=== PATIENT | female | born 1955 | race Caucasian/White ===

== ENCOUNTER 2018-02-24 06:59 | Inpatient (IN) | payer OTHER ==
[~2018-02-24] VITALS: Ht 170.2 cm; Wt 93.9 kg
[~2018-02-24 06:59] MED LIST: AZITHROMYCIN 2250 MG PO; CEFDINIR300 MG PO; HYDROCODONE-AP1 EAC6 PO; LEXAPRO 10 MG T10 M2 PO; NAUSEA MED; VOLTAREN GEL 1100 G2 TOP; XARELTO 20 MG PO; XARELTO15 MG PO; XARELTO20 MG PO
[2018-02-27 12:53] VITALS: BP 148/82
[2018-02-27 12:54] LABS: HEMATOCRIT 46.3 % (37.0-47.0); HEMOGLOBIN 15.6 gm/dL (12.0-15.0); MCH 30.4 pg (26.0-34.0); MCHC 33.6 g/dL (28.0-37.0); MCV 90.3 fL (80.0-100.0); MPV 8.1 fl. (7.2-11.1); RBC 5.13 mil/uL (4.20-5.00); WBC 12.5 thou/uL (4.0-11.0)
[2018-02-27 13:01] LABS: CALCIUM 9.6 mg/dL (8.5-10.1); CREATININE 1.4 mg/dL (0.6-1.3)
--- NOTE | 2018-02-27 16:22 | EKG ---
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
[2018-02-27 21:20] VITALS: BP 144/62
[2018-02-28 04:00] VITALS: BP 146/62
[2018-02-28 07:20] VITALS: BP 135/62
[2018-02-28 08:11] VITALS: BP 135/57
[2018-02-28 08:27] LABS: HEMATOCRIT 39.2 % (37.0-47.0); MCH 29.8 pg (26.0-34.0); MCHC 33.1 g/dL (28.0-37.0); MCV 90.1 fL (80.0-100.0); MPV 7.9 fl. (7.2-11.1); NUCLEATED RBCS 0 /100WBC; PLATELET COUNT* 266 thou/uL (150-400); RBC 4.35 mil/uL (4.20-5.00); WBC 12.9 thou/uL (4.0-11.0)
[2018-02-28 08:40] LABS: ALBUMIN 2.6 g/dL (3.4-5.0); CALCIUM 7.7 mg/dL (8.5-10.1); CREATININE 1.4 mg/dL (0.6-1.3); POTASSIUM 4.9 mmol/L (3.5-5.1); TOTAL BILIRUBIN 0.6 mg/dL (<0.1-1.0); TOTAL PROTEIN 5.6 g/dL (6.4-8.2)
[2018-02-28 08:56] LABS: ABSOLUTE MONOCYTES 1.2 thou/uL (0.0-1.2); ABSOLUTE NEUTROPHILS 10.7 thou/uL (1.6-8.1); ANISOCYTOSIS 1+; PLATELET ESTIMATE ADEQUATE; POIKILOCYTOSIS 1+
[2018-02-28 16:00] VITALS: BP 117/42
[2018-02-28 20:20] VITALS: BP 146/55
[2018-02-28 23:22] VITALS: BP 127/41
[2018-03-01 03:53] VITALS: BP 127/47
[2018-03-01 04:17] LABS: ABSOLUTE BASOPHILS 0.1 thou/uL (0.0-0.2); ABSOLUTE MONOCYTES 0.9 thou/uL (0.0-1.2); ABSOLUTE NEUTROPHILS 8.8 thou/uL (1.6-8.1); BASOPHILS 0.7 %; EOSINOPHILS 0.2 %; LYMPHOCYTES 9.7 %; MCH 30.2 pg (26.0-34.0); MCHC 32.9 g/dL (28.0-37.0); MCV 91.6 fL (80.0-100.0); MONOCYTES 8.1 %; MPV 8.5 fl. (7.2-11.1); NUCLEATED RBCS 0 /100WBC; PLATELET COUNT* 205 thou/uL (150-400); POLYS 81.3 %; RDW-CV 14.8 % (10.5-14.5); WBC 10.8 thou/uL (4.0-11.0)
[2018-03-01 04:21] LABS: HEMOGLOBIN 10.9 gm/dL (12.0-15.0)
[2018-03-01 04:22] LABS: CALCIUM 7.6 mg/dL (8.5-10.1); CREATININE 0.9 mg/dL (0.6-1.3); POTASSIUM 4.4 mmol/L (3.5-5.1)
[2018-03-01 08:00] VITALS: BP 121/50
[2018-03-01 15:52] VITALS: BP 134/53
--- NOTE | 2018-03-01 18:15 | EKG ---
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 : 1955 Requested By: Aram Green Order Number: [id number] Misti MD: Sarath Rehman Measurements Intervals [place] Rate: 104 P: 41 [place]: 121 QRS: -8 QRSD: 88 T: 75 QT: 332 QTc: 437 Interpretive Statements Sinus tachycardia atrial and ventricular premature complexes Borderline T wave abnormalities Compared to ECG 02/27/2018 12:24:16 Ventricular premature complex(es) now present Sinus rhythm no longer present Electronically Signed On 03-01-2018 18:15:24 CDT by Sarath Rehman [email or web address] <ELECTRONICALLY SIGNED> By: Sarath Rehman MD, [facility] 03/01/18 1815 0840 0840 Sarath Rehman MD, [facility] /EPI
[2018-03-01 20:00] VITALS: BP 143/63
[2018-03-02] VITALS: BP 124/59
[2018-03-02 04:00] VITALS: BP 128/60
[2018-03-02 04:31] LABS: ABSOLUTE EOSINOPHILS 0.1 thou/uL (0.0-0.7); ABSOLUTE LYMPHOCYTES 0.9 thou/uL (0.8-5.3); ABSOLUTE MONOCYTES 0.8 thou/uL (0.0-1.2); ABSOLUTE NEUTROPHILS 9.2 thou/uL (1.6-8.1); BASOPHILS 0.4 %; EOSINOPHILS 1.3 %; HEMATOCRIT 30.2 % (37.0-47.0); HEMOGLOBIN 10.1 gm/dL (12.0-15.0); LYMPHOCYTES 8.2 %; MCH 30.5 pg (26.0-34.0); MCHC 33.4 g/dL (28.0-37.0); MCV 91.5 fL (80.0-100.0); MONOCYTES 7.2 %; MPV 8.5 fl. (7.2-11.1); NUCLEATED RBCS 0 /100WBC; PLATELET COUNT* 213 thou/uL (150-400); POLYS 82.9 %; RDW-CV 14.5 % (10.5-14.5); WBC 11.1 thou/uL (4.0-11.0)
[2018-03-02 04:42] LABS: CALCIUM 7.9 mg/dL (8.5-10.1); CREATININE 0.9 mg/dL (0.6-1.3); MAGNESIUM 1.8 mg/dL (1.8-2.4); PHOSPHORUS* 2.4 mg/dL (2.5-4.9); POTASSIUM 4.5 mmol/L (3.5-5.1)
[2018-03-02 07:45] VITALS: BP 112/54
[2018-03-02 12:17] VITALS: BP 126/61
[2018-03-02 16:23] VITALS: BP 113/53
[2018-03-02 20:00] VITALS: BP 136/50
[2018-03-03] VITALS: BP 147/46
[2018-03-03 04:00] VITALS: BP 133/61
[2018-03-03 04:50] LABS: HEMATOCRIT 32.2 % (37.0-47.0); HEMOGLOBIN 10.5 gm/dL (12.0-15.0); MCHC 32.5 g/dL (28.0-37.0); MCV 92.2 fL (80.0-100.0); MPV 8.6 fl. (7.2-11.1); NUCLEATED RBCS 0 /100WBC; RBC 3.49 mil/uL (4.20-5.00); RDW-CV 15.1 % (10.5-14.5); WBC 10.6 thou/uL (4.0-11.0)
[2018-03-03 05:13] LABS: CALCIUM 8.6 mg/dL (8.5-10.1); MAGNESIUM 1.8 mg/dL (1.8-2.4); PHOSPHORUS* 3.2 mg/dL (2.5-4.9); POTASSIUM 4.5 mmol/L (3.5-5.1)
[2018-03-03 05:16] LABS: PLATELET COUNT* 305 thou/uL (150-400)
[2018-03-03 06:32] LABS: ABSOLUTE BASOPHILS 0.1 thou/uL (0.0-0.2); ABSOLUTE EOSINOPHILS 0.4 thou/uL (0.0-0.7); ABSOLUTE LYMPHOCYTES 0.6 thou/uL (0.8-5.3); ABSOLUTE MONOCYTES 0.3 thou/uL (0.0-1.2); ABSOLUTE NEUTROPHILS 9.1 thou/uL (1.6-8.1); METAMYELOCYTES 1 %; PLATELET ESTIMATE ADEQUATE
[2018-03-03 08:00] VITALS: BP 144/38
[2018-03-03 16:12] VITALS: BP 125/62
[2018-03-03 20:00] VITALS: BP 125/54
[2018-03-03 23:43] VITALS: BP 146/52
[2018-03-04 03:47] VITALS: BP 153/62
[2018-03-04 04:23] LABS: HEMATOCRIT 31.2 % (37.0-47.0); HEMOGLOBIN 10.2 gm/dL (12.0-15.0); MCHC 32.6 g/dL (28.0-37.0); MCV 92.2 fL (80.0-100.0); MPV 8.3 fl. (7.2-11.1); RBC 3.38 mil/uL (4.20-5.00)
[2018-03-04 04:30] LABS: CALCIUM 8.7 mg/dL (8.5-10.1); CREATININE 0.9 mg/dL (0.6-1.3); MAGNESIUM 1.8 mg/dL (1.8-2.4); PHOSPHORUS* 4.2 mg/dL (2.5-4.9); POTASSIUM 4.9 mmol/L (3.5-5.1)
[2018-03-04 08:00] VITALS: BP 140/62
[2018-03-04 16:03] VITALS: BP 120/62
[2018-03-04 20:00] VITALS: BP 125/54
[2018-03-04 23:29] VITALS: BP 125/55
[2018-03-05 04:09] VITALS: BP 135/56
[2018-03-05 07:50] VITALS: BP 150/69
[2018-03-05 15:23] VITALS: BP 106/58
[2018-03-05 20:00] VITALS: BP 124/59
[2018-03-06 08:00] VITALS: BP 127/55
[2018-03-06] MEDS ORDERED: PHENERGAN 25 MG25 M1 PO (10:43)
[2018-03-06] MEDS ORDERED: LOPERAMIDE 2 MG2 M1 PO (10:43)
[2018-03-06] MEDS ORDERED: HYDROCODONE-AP1 EAC6 PO (14:28)
[2018-03-06 14:41] VITALS: BP 127/55
[2018-03-06 16:00] VITALS: BP 134/61
[2018-03-07 03:45] VITALS: BP 115/56
[2018-03-07 08:00] VITALS: BP 121/53
[2018-03-07 08:17] LABS: URINE BILIRUBIN NEGATIVE (Negative); URINE BLOOD NEGATIVE (Negative); URINE CLARITY CLEAR; URINE COLOR YELLOW; URINE GLUCOSE-RANDOM NEGATIVE (Negative); URINE KETONES NEGATIVE (Negative); URINE LEUKOCYTES-REFLEX NEGATIVE (Negative); URINE NITRITE-REFLEX NEGATIVE (Negative); URINE PROTEIN NEGATIVE (Negative); URINE SPECIFIC GRAVITY >= 1.030 (1.005-1.030); URINE UROBILINOGEN 0.2 E.U./dl (0.2-1.0)
[2018-03-07 11:35] VITALS: BP 121/53
--- NOTE | 2018-03-10 22:20 | OP ---
[facility] [place] [address] [place] [address] OPERATIVE REPORT Name: VINEET PFEIFFER Room: [address] IN M.R.#: [id number] Admission: 02/27/18 Attend Phys: Juancarlos Robin Discharge: 03/07/18 Date of : 57 Report #: [id number] THIS REPORT FOR: //name// CC: Bisi Green DATE OF SERVICE: 02/27/2018 PREOPERATIVE DIAGNOSES: 1. History of obstructing colorectal cancer. 2. Metastatic colorectal cancer. POSTOPERATIVE DIAGNOSES: 1. History of obstructing colorectal cancer. 2. Metastatic colorectal cancer. PROCEDURE: 1. Laparoscopic colostomy takedown. 2. Conversion to laparotomy. 3. Subtotal colectomy. 4. Ileorectal anastomosis. 5. Rigid proctosigmoidoscopy. 6. Angiographic evaluation of colonic flap. 7. Extensive lysis of adhesions for 2 hours. 8. Loop ileostomy. 9. Small bowel resection with anastomosis. SURGEON: Bisi Ivy M.D. CULINARY MANAGER: Ileana Cerrato DO. ESTIMATED BLOOD LOSS: 100 mL. FINDINGS: Poor perfusion of left colon immediately prior to anastomosis requiring extension to a subtotal colectomy to achieve adequate reach given her large body habitus and constricted mesentery. ANESTHESIA: GET. SPECIMENS: 1. Peritoneal nodule. 2. Colon. 3. Colostomy specimen. [address] [address] OPERATIVE REPORT Name: VINEET PFEIFFER Room: [address] IN M.R.#: [id number] Admission: 02/27/18 Attend Phys: Juancarlos Robin Discharge: 03/07/18 Date of : 57 Report #: [id number] DESCRIPTION OF PROCEDURE: Full informed consent obtained preoperatively, full discussion of risks, benefits, and alternatives, questions answered. The patient understood risks of bleeding, infection, reoperation, injury to surrounding structures, missed injury, possibility that she would not be able to be reversed, ongoing cancer, delay in chemotherapy, anastomotic leak, temporary or permanent stoma, catastrophic complications up to and including cardiopulmonary failure and . She understood and wished to proceed. She was taken to the operating room, prepped and draped in standard sterile fashion. We began with a timeout with all in agreement. The patient prepped and draped in the lithotomy fashion, began with a 7 cm incision around the umbilicus for hand port. There was entry into the bowel, which was extensively. Upon initial entry in the abdomen, there was a small bowel without any dissection plane adhering to midline incision. There was entry into small bowel, which was inherent to the procedure given the severe intraabdominal adhesive process. At this point, I began extensive lysis of adhesions, taking down numerous interloop adhesions as well as loops of small bowel to the anterior abdominal wall. I then was able to make a window, where I began working on taking down the colostomy. Colostomy was circumferentially dissected with cautery and from subcutaneous tissue and fascia. At this point, an Alejo wound protector was placed. It had already been stitched to prevent leakage. I worked for some time mobilizing the left colon away from the small bowel, retroperitoneum and left colon as well as working on the splenic flexure. I got to a point where reach was adequate for an anastomosis. At this point, I turned my attention to the rectum. Significant small bowel loops of adhesive disease were dissected out of the pelvis. I the rectum from the pelvic sidewall and the anterior abdominal wall. I had a healthy appearing rectal stump at this time. I brought my left colon down to the rectum. I was able to get to this point at the end of its reach with minimal tension. Prior to making my anastomosis I gave 3 mL of ICG green. I checked the left colon from the splenic flexure down to the left colon itself. Given the patient's very large body habitus and somewhat constricted mesentery, I did not feel it would be possible to drop hepatic flexure down to reach the rectum in a tension-free manner. Therefore, I converted to laparotomy and proceeded with subtotal colectomy. This part itself also was very challenging. At this point, I was able to inspect the abdomen further. Peritoneal nodules were noted, one was sent for biopsy. Also, pictures taken of nodule still present in liver. Overall, cancer had appeared to have receded since prior exploration; however, I suspect there may still be some present. I talked with the patient preoperatively extensively about this scenario and she did wish strongly to proceed with attempt at reversal. I continued with my subtotal colectomy, omentum from the transverse colon, entering the lesser sac, hepatocolic ligaments were taken down, took down the white line of Toldt on the opposite side and the cecum from the retroperitoneum. The vessel sealer was used to take down the mesentery. Finally, I came to a site of the small bowel where it would easily drop down to the rectum in a tension-free manner. At this point, I made an enterotomy in the [address] [address] OPERATIVE REPORT Name: VINEET PFEIFFER Room: [address] IN [facility]#: [id number] Admission: 02/27/18 Attend Phys: Juancarlos Robin Discharge: 03/07/18 Date of : 57 Report #: [id number] distal terminal ileum, advanced the 29 EEA stapler with a spike attached to the anvil and advanced it out through the end of mesenteric window of the small bowel. I removed the spike. Next, I ran the small bowel in its entirety and took down additional loop adhesions. I came to a portion where there was an injury to the small bowel. After continuing on the small bowel, I did find the site of the enterotomy encountered at the beginning of procedure. It was a large circumference; therefore, I chose to proceed with small bowel resection. I mobilized the proximal and distal healthy margins. Mesentery was taken on the distal injured margin. It was brought together in ouai-hm-qyth anti-peristaltic fashion. Common channel was made and then 65 KELLI fired between it. Next, Allises were used to grasp this 90 TA stapler fired across this to close the common channel. A 3-0 silks were used to imbricate. The anastomosis was patent and milking contents past it. There was no evidence of any leak. An additional serosal tear was oversewed with 3-0 silk. I inspected the small-bowel again in its entirety. I found no evidence of any injury throughout its extent with multiple checks. I brought my small-bowel connection down to the pelvis and easily reached the rectum tension free. I inspected where my small-bowel ileostomy would come up and this still did not place any undue tension on the lower anastomosis. I brought the EEA stapler after first dilating up to end of the rectum. Kamlesh advanced easily. It synchronized with the anvil, I brought them together within the safety zone, waited one full minute and then fired and then removed the stapler. Staple line appeared to be complete. The blood supply appeared intact. I irrigated and performed rigid proctosigmoidoscopy up towards the anastomosis. Internally, it appeared to be complete. There was a small air leak noted at the patient's left lateral location. This visually did not have a defect, but air leak was noted. I oversewed it until the air leak was stopped. We confirmed then that there was no leak. I placed a 19 round DARLEEN in the pelvis, anchored in with 2-0 nylon. I selected my loop ileostomy. It was brought up to the previous colostomy site. The skin was approximated with 3-0 PDS as the fascia was closed with 3-0 PDS at the stoma site to make it more appropriate for an ileostomy. A stoma bar would be placed beneath it and would later be matured in Renetta manner. I irrigated it copiously and made sure it was hemostatic. I performed methodical wound exploration to make sure there were no laps and her count was correct. I closed the fascia from craniocaudal portions of the incision with 0 PDS. I irrigated the wound. I approximated with 3-0 Vicryl and closed with vu. It was protected. Next I matured the loop ileostomy with 3-0 Vicryl in multiple occasions. I had taken full-thickness bites, some deep serosal bites and dermal bites and then matured the mucocutaneous junction. It was palpably patent and the proximal edge was off the skin several centimeters. Stoma appliance was placed. Stoma bar was under the ileostomy. Sponge, needle and instrument counts were correct at the end of the case. The patient tolerated it well. <ELECTRONICALLY SIGNED> By: Bisi Ivy MD 03/10/18 2220 0227 2202Dantonio Ivy MD /nt
--- NOTE | 2018-03-10 22:20 | OP ---
[facility] [address] [place] [address] OPERATIVE REPORT Name: VINEET PFEIFFER Room: [address] IN M.R.#: [id number] Admission: 02/27/18 Attend Phys: Juancarlos Robin Discharge: 03/07/18 Date of : 57 Report #: [id number] THIS REPORT FOR: //name// CC: Bisi Green DATE OF SERVICE: 02/27/2018 ADDENDUM After continuing on the small-bowel, I did find the site of the enterotomy encountered at the beginning of procedure. It was a large circumference; therefore, I chose to proceed with small-bowel resection. I mobilized the proximal and distal healthy margins. Mesentery was taken on the distal injured margin. It was brought together in wbfy-cn-wusl anti-peristaltic fashion. Common channel was made and then 65 KELLI fired between it. Next, Allises were used to grasp this 90 TA stapler fired across this to close the common channel. A 3-0 silks were used to imbricate. The anastomosis was patent and milking contents past it. There was no evidence of any leak. An additional serosal tear was oversewed with 3-0 silk. I inspected the small-bowel again in its entirety. I found no evidence of any injury throughout its extent with multiple checks. I brought my small-bowel connection down to the pelvis and easily reached the rectum tension free. I inspected where my small-bowel ileostomy would come up and this still did not place any undue tension on the lower anastomosis. I brought the EEA stapler after first dilating up to end of the rectum. Kamlesh advanced easily. It synchronized with the anvil, I brought them together within the safety zone, waited one full minute and then fired and then removed the stapler. Staple line appeared to be complete. The blood supply appeared intact. I irrigated and performed rigid proctosigmoidoscopy up towards the anastomosis. Internally, it appeared to be complete. There was a small air leak noted at the patient's left lateral location. This visually did not have a defect, but air leak was noted. I oversewed it until the air leak was stopped. We confirmed then that there was no leak. I placed a 19 round DARLEEN in the pelvis, anchored in with 2-0 nylon. I selected my loop ileostomy. It was brought up to the previous colostomy site. The skin was approximated with 3-0 PDS as the fascia was closed with 3-0 PDS at the stoma site to make it more appropriate for an ileostomy. A stoma bar would be placed beneath it and would later be matured in Renetta manner. I irrigated it copiously and made sure it was hemostatic. I performed methodical wound exploration to make sure there were no laps and her count was correct. I closed the fascia from craniocaudal portions of the incision with 0 PDS. I irrigated the wound. I approximated with 3-0 Vicryl and closed with vu. It was protected. Next I matured the loop ileostomy with 3-0 Vicryl in multiple occasions. I had taken full-thickness bites, some deep [facility] [address] [facility] [address] OPERATIVE REPORT Name: VINEET PFEIFFER Room: [address] IN M.R.#: [id number] Admission: 02/27/18 Attend Phys: Juancarlos Robin Discharge: 03/07/18 Date of : 57 Report #: [id number] serosal bites and dermal bites and then matured the mucocutaneous junction. It was palpably patent and the proximal edge was off the skin several centimeters. Stoma appliance was placed. Stoma bar was under the ileostomy. Sponge, needle and instrument counts were correct at the end of the case. The patient tolerated it well. <ELECTRONICALLY SIGNED> By: Bisi Ivy MD 03/10/18 2220 2144 [id number] Ivy MD /fermin
[2018-04-12] MEDS ORDERED: LOPERAMIDE 2 MG2 M1 PO (10:46)
[2018-04-12] MEDS ORDERED: XARELTO20 MG PO (10:47)
[2018-04-30] MEDS ORDERED: AUGMENTIN 875-1 EACH PO ×2 (10:20→10:31)
--- NOTE | 2018-07-04 15:22 | PATH ---
[address] [address] PATHOLOGY RPT PROCEDURE Name: KENTRELLVINEET Byron Room: [address] IN M.R.#: [id number] Admission: 02/27/18 Date of : 57 Discharge: 03/07/18 Report #: [id number] Path Case #: [id number] [facility] Accession Number: [id number] . 01 Material submitted: . PART A: SUBTOTAL COLON WITH ANASTOMOTIC RINGS PART B: PERITONEAL BIOPSY . 01 Clinical history: . Adenocarcinoma, laparoscopic sigmoid colostomy takedown . 02 Diagnosis: A. Subtotal colon with anastomotic rings: - COLOSTOMY INCLUDING SKIN, COLON, APPENDIX AND TERMINAL ILEUM WITH MULTIPLE SEROSAL DEPOSITS OF ADENOCARCINOMA INCLUDING INVOLVEMENT OF TERMINAL ILEUM STUMP RESECTION MARGIN, AND SEROSA OF MESOAPPENDIX. - PERICOLIC/MESENTERIC FAT WITH AT LEAST 15 FATTY AND SEROSAL TUMOR DEPOSITS, WITHOUT DEFINITE RECOGNIZABLE LYMPH NODES, AND WITH SEVERAL FOCI OF NODULAR FAT NECROSIS. - Colonic anastomotic ring with hyperplastic polyp and small intestinal anastomotic ring with black pigment tattooing, in association with metallic stapling device. See comment. . B. Peritoneal biopsy: - ADENOCARCINOMA TYPICAL OF COLORECTAL PRIMARY. SEE COMMENT. (MICHOACANO:[email or web address]; 03/07/2018) QMS/03/08/2018 . 02 Comment: This patient had colorectal adenocarcinoma previously resected noted to have involvement of serosal surfaces and of 7 of 16 pericolic lymph nodes around May 2017 ([id number]). All of the suspected lymph node candidates submitted in the current specimen represent metastatic tumor deposits or nodular fat necrosis without recognizable lymph nodes found, although some of these foci may represent small lymph nodes completely replaced. Preliminary findings relayed to Dr. Bisi Ivy at approximately 1315 on 03/06/2018, and to Dr. Radha Hugo in a.m. on 03/07/2018. . . . . 02 Electronically signed: . Aris Stoll MD, Pathologist NPI- [id number] . 01 Gross description: . A. The specimen is received in formalin, labeled "Kentrell, subcutaneous total colon with anastomotic rings," and consists of [place] [address] PATHOLOGY RPT PROCEDURE Name: VINEET PFEIFFER Room: [address] IN M.R.#: [id number] Admission: 02/27/18 Date of : 57 Discharge: 03/07/18 Report #: [id number] Path Case #: [id number] consisting of terminal ileum measuring 3.2 cm in length and 1.9 cm in diameter, appendix measuring 6.0 cm in length and 0.5 cm in diameter, large intestine measuring 55.5 cm in length and ranging from 1.8-2.4 cm in diameter, and mesocolon measuring up to 6.9 cm. The proximal terminal ileum stump margin is closed by vu and the distal is open. The distal margin is surrounded by liang skin and shows a bulging liang-brown mucosa. The colon serosa is gonzales-liang and partially encased with adhesions. No serosal/fatty metastases are grossly identified. The specimen is opened along the antimesenteric side to reveal a pink-liang mucosa and no polyps or mass lesions. Sectioning the appendix reveals a pinpoint lumen and no discrete fecaliths or mass lesions. The mesocolon is sectioned and placed in a clearing solution to reveal multiple lymph node candidates ranging from 0.1 cm to 1.0 cm. . Also received is a metallic diagnostic medical sonographer with attached anastomotic rings which measure 2.3 x 1.4 x 0.6 cm and 2.3 x 1.2 x 0.5 cm. Transportation [employer] Internship sections are submitted as follows: . A1: Terminal ileum stump resection margin A2: Distal resection margin A3: Terminal ileum mucosa A4: 5 cm from proximal A5: 15 cm from proximal A6: 25 cm from proximal A7: 35 cm from proximal A8: 45 cm from proximal A9: 50 cm from proximal A10: Appendix A11: Anastomotic rings A12: 2 bisected lymph nodes, one differentially inked A13: 2 bisected lymph nodes one differentially inked A14-A16: Intact lymph node candidates . B. The specimen is received in formalin, labeled "Kentrell, peritoneal mass," and consists of a segment of gonzales-liang soft tissue measuring 1.0 x 0.5 x 0.3 cm. It is entirely submitted in cassette B1. (SDY; 03/01/2018) . Additional distal resection margin sections are submitted in cassette A17. (SDY; 03/06/18) SYU/SYU . 02 CPT . [id number], [id number] Specimen Comment: A duplicate report has been generated due to demographic updates. Performed at: [address] [place], [place] [address]vd [address], [place], [place] [id number] [facility] [address] [place] [address] PATHOLOGY RPT PROCEDURE Name: VINEET PFEIFFER Room: [address] IN .R.#: [id number] Admission: 02/27/18 Date of : 57 Discharge: 03/07/18 Report #: [id number] Path Case #: [id number] MD Vivek Oro MD Phone: [phone] Performed at: [address] [place] [id number] MD Aris Stoll MD Phone: [phone]
== END 2018-03-07 12:10 | disposition home or self-care (01) | DRG 329 ==
LOC: M.PRE 06:59 → M.ORTHSURG 02-27 11:35 → M.TBA 02-27 11:35 → M.PRE 02-27 15:21 → M.ORTHSURG 02-27 21:54 → M.2W 03-01 12:20 → M.3W 03-03 21:54
PROVIDERS: Internal Medicine; Surgery; ADMIT Internal Medicine
PROC: 0DJD8ZZ Inspection of Lower Intestinal Tract, Via Natural or Artificial Opening Endoscopic (ICD-10-PCS; principal; 2018-02-27)
PROC: 0D1B0Z4 Bypass Ileum to Cutaneous, Open Approach (ICD-10-PCS; principal; 2018-02-27)
PROC: 0DBL4ZZ Excision of Transverse Colon, Percutaneous Endoscopic Approach (ICD-10-PCS; principal; 2018-02-27)
PROC: 0DN80ZZ Release Small Intestine, Open Approach (ICD-10-PCS; principal; 2018-02-27)
PROC: 0DT80ZZ Resection of Small Intestine, Open Approach (ICD-10-PCS; principal; 2018-02-27)
PROC: 0DBL0ZZ Excision of Transverse Colon, Open Approach (ICD-10-PCS; principal; 2018-02-27)
DX: C19 Malignant neoplasm of rectosigmoid junction (principal); R65.11 Systemic inflammatory response syndrome (SIRS) of non-infectious origin with acute organ dysfunction; E44.0 Moderate protein-calorie malnutrition; N17.9 Acute kidney failure, unspecified; J98.11 Atelectasis; F41.9 Anxiety disorder, unspecified; I10 Essential (primary) hypertension; E66.9 Obesity, unspecified; F32.9 Major depressive disorder, single episode, unspecified; R00.0 Tachycardia, unspecified; Z93.3 Colostomy status; Z90.49 Acquired absence of other specified parts of digestive tract; Z90.710 Acquired absence of both cervix and uterus; Z98.890 Other specified postprocedural states; Z80.0 Family history of malignant neoplasm of digestive organs; Z80.9 Family history of malignant neoplasm, unspecified; Z85.43 Personal history of malignant neoplasm of ovary; Z87.891 Personal history of nicotine dependence; Z86.718 Personal history of other venous thrombosis and embolism; Z68.32 Body mass index [BMI] 32.0-32.9, adult; Z79.899 Other long term (current) drug therapy

== ENCOUNTER → 2018-03-29 | Outpatient (CLI) | payer OTHER ==
[~2018-03-29] MED LIST changes: +AUGMENTIN 875-1 EACH PO; +LOPERAMIDE 2 MG2 M1 PO; +PHENERGAN 25 MG25 M1 PO
== END ==
LOC: M.CT 09:05
DX: Z09 Encounter for follow-up examination after completed treatment for conditions other than malignant neoplasm (principal); N20.0 Calculus of kidney; M51.06 Intervertebral disc disorders with myelopathy, lumbar region

== ENCOUNTER 2018-04-17 14:21 | Inpatient (IN) | payer OTHER ==
[2018-04-10 12:22] LABS: ABSOLUTE BASOPHILS 0.2 thou/uL (0.0-0.2); ABSOLUTE EOSINOPHILS 0.1 thou/uL (0.0-0.7); ABSOLUTE LYMPHOCYTES 1.5 thou/uL (0.8-5.3); ABSOLUTE MONOCYTES 0.7 thou/uL (0.0-1.2); ABSOLUTE NEUTROPHILS 10.5 thou/uL (1.6-8.1); BASOPHILS 1.3 %; EOSINOPHILS 0.5 %; HEMATOCRIT 43.6 % (37.0-47.0); LYMPHOCYTES 11.5 %; MCH 28.4 pg (26.0-34.0); MCHC 32.2 g/dL (28.0-37.0); MCV 88.2 fL (80.0-100.0); MONOCYTES 5.4 %; MPV 7.8 fl. (7.2-11.1); NUCLEATED RBCS 0 /100WBC; PLATELET COUNT* 494 thou/uL (150-400); POLYS 81.3 %; RBC 4.95 mil/uL (4.20-5.00); RDW-CV 15.8 % (10.5-14.5); WBC 12.9 thou/uL (4.0-11.0)
[2018-04-10 12:37] LABS: ALBUMIN 3.5 g/dL (3.4-5.0); CALCIUM 10.4 mg/dL (8.5-10.1); CREATININE 2.8 mg/dL (0.6-1.3); TOTAL BILIRUBIN 0.5 mg/dL (<0.1-1.0); TOTAL PROTEIN 8.6 g/dL (6.4-8.2)
[~2018-04-17] VITALS: Ht 170.2 cm; Wt 82.1 kg
[~2018-04-17 14:21] MED LIST changes: -AUGMENTIN 875-1 EACH PO
[2018-04-17 15:51] VITALS: BP 120/69
--- NOTE | 2018-04-17 16:59 | NUR ---
PATIENT CAME TO THE FLOOR FROM ADMITTING VIA WHEELCHAIR IN STABLE CONDITION. NO COMPLAINTS OF PAIN BUT HAS SOME NAUSEA AND VOMITING. ADMITTING ASSESSMENT AND ROOM ORIENTATION DONE. CALL LIGHT IS IN REACH, WILL CONTINUE TO MONITOR.
--- NOTE | 2018-04-17 17:45 | NUR ---
PATIENT IS ALERT AND ORIENTED TODAY VERY PLEASANT. SOME NAUSEA AND VOMITING TODAY THAT SEEMS TO BE CONTROLLED WITH ORAL MEDICATIONS. WHEEL PRESS OPERATOR ACCESSED PORT A CATH IN RIGHT CHEST AREA, PER PROVIDER ORDERS, FLUIDS INFUSION NOW. CALL LIGHT IS IN REACH, WILL CONTINUE TO MONITOR.
[2018-04-17 23:45] VITALS: BP 109/61
--- NOTE | 2018-04-18 06:07 | NUR ---
ASSESSMENT COMPLETE. PT SLEPT THROUGH THE NIGHT WITHOUT ANY CONCERNS. PT GIVEN ZOFRAN ONCE FOR NAUSEA. PT NPO FOR SURGERY TODAY. PT TURNS SELF IN BED, UP AD LINDA TO BATHROOM. PT DENIES PAIN. PT HAS RIGHT PAC WITH FLUIDS INFUSING. SEE ASSESSMENT AND VITALS FOR OTHER DETAILS. CALL LIGHT WITHIN REACH, WILL CONTINUE PLAN OF CARE
[2018-04-18 07:45] VITALS: BP 120/55
[2018-04-18 08:25] LABS: HEMOGLOBIN 12.5 gm/dL (12.0-15.0); MCH 28.8 pg (26.0-34.0); MCHC 32.9 g/dL (28.0-37.0); MCV 87.7 fL (80.0-100.0); RBC 4.33 mil/uL (4.20-5.00); RDW-CV 15.7 % (10.5-14.5); WBC 8.5 thou/uL (4.0-11.0)
[2018-04-18 08:31] LABS: CALCIUM 8.9 mg/dL (8.5-10.1); CREATININE 2.3 mg/dL (0.6-1.3); MAGNESIUM 2.4 mg/dL (1.8-2.4); PHOSPHORUS* 4.1 mg/dL (2.5-4.9); POTASSIUM 3.8 mmol/L (3.5-5.1)
[2018-04-18 10:32] LABS: INR 1.1; PROTIME 10.5 Seconds (9.20-11.50)
[2018-04-18 11:23] VITALS: BP 120/55; BP 122/62
--- NOTE | 2018-04-18 14:08 | NUR ---
PATIENT TO TRANSFER DOWN TO ROOM 107 AFTER SURGERY. SBAR SENT TO NURSES STATION. ALL BELONGINGS TAKEN TO ROOM 107. PATIENT TO SURGERY AT 1215
--- NOTE | 2018-04-18 15:01 | NUR ---
ATTEMPTED TO SEE PT, WAS GOING TO SURGERY AND THEN TO TRSF TO ORTHOSURG
[2018-04-18 20:00] VITALS: BP 117/63
[2018-04-18 23:30] VITALS: BP 112/71
[2018-04-19 04:01] VITALS: BP 131/59
--- NOTE | 2018-04-19 04:39 | NUR ---
PATIENT ARRIVED TO UNIT AT 1953 FROM PACU. ALERT AND ORIENTED X 4, DROWSY FROM PAIN MEDICATION. ORIENTED TO ROOM AND STAFF. ABDOMINAL DRESSING C/D/I. DARLEEN DRAIN TO LEFT LOWER QUADRANT. PREVENA WOUND VAC IN PLACE. ABDOMINAL BINDER ON. SALGUERO TO DEPENDENT DRAINAGE. FLUIDS INFUSING PER ORDER. DENIES THE NEED FOR NAUSEA AND PAIN MEDICATION. SLEPT COMFORTABLY DURING THE NIGHT. HOURLY ROUNDS. BED ALARM IN USE. NURSING WILL CONTINUE TO MONITOR.
[2018-04-19 06:10] LABS: HEMATOCRIT 32.9 % (37.0-47.0); HEMOGLOBIN 10.7 gm/dL (12.0-15.0); MCH 29.3 pg (26.0-34.0); MCHC 32.7 g/dL (28.0-37.0); MCV 89.6 fL (80.0-100.0); MPV 8.1 fl. (7.2-11.1); NUCLEATED RBCS 0 /100WBC; PLATELET COUNT* 241 thou/uL (150-400); RBC 3.67 mil/uL (4.20-5.00); WBC 10.5 thou/uL (4.0-11.0)
[2018-04-19 06:27] LABS: CREATININE 1.7 mg/dL (0.6-1.3); POTASSIUM 4.7 mmol/L (3.5-5.1)
[2018-04-19 07:08] LABS: ABSOLUTE LYMPHOCYTES 1.3 thou/uL (0.8-5.3); ABSOLUTE MONOCYTES 0.1 thou/uL (0.0-1.2); ABSOLUTE NEUTROPHILS 9.1 thou/uL (1.6-8.1); ANISOCYTOSIS 1+; PLATELET ESTIMATE ADEQUATE; POIKILOCYTOSIS 1+
[2018-04-19 08:10] VITALS: BP 121/57
[2018-04-19 16:00] VITALS: BP 125/60
--- NOTE | 2018-04-19 16:37 | NUR ---
PATIENT ALERT AND ORIENTED X 4. VITAL SIGNS STABLE ON ROOM AIR. AFEBRILE. PERRLA. RIGHT CHEST PORT PATENT WITH FLUIDS INFUSING. SALGUERO PATENT AND DRAININGS TO DEPENDENT DRAINAGE. DARLEEN TO LEFT LOWER QUADRANT. PREVENA WOUND VAC IN PLACE. ABDOMINAL BINDER IN PLACE. DENIES PAIN AND NAUSEA. NO BOWEL MOVEMENT TODAY AND NO PASSING FLATUS. SAT UP IN BED TO EAT MEALS. ENCOURAGED PATIENT TO SIT ON THE SIDE OF BED AND DANGLE LEGS WITH NO SUCCESS. FALL PRECAUTIONS IN PLACE AND BED ALARM ON. HOURLY ROUNDS MAINTAINED THROUGHOUT THE SHIFT. CALL LIGHT WITHIN REACH. NURSING WILL CONTINUE TO MONITOR.
[2018-04-19 20:00] VITALS: BP 112/48
[2018-04-20 00:40] VITALS: BP 129/44
[2018-04-20 03:45] VITALS: BP 108/40
[2018-04-20 04:11] LABS: ABSOLUTE MONOCYTES 0.8 thou/uL (0.0-1.2); ABSOLUTE NEUTROPHILS 7.6 thou/uL (1.6-8.1); BASOPHILS 0.3 %; EOSINOPHILS 0.2 %; HEMATOCRIT 28.8 % (37.0-47.0); HEMOGLOBIN 9.5 gm/dL (12.0-15.0); LYMPHOCYTES 10.5 %; MCH 29.7 pg (26.0-34.0); MCV 90.1 fL (80.0-100.0); NUCLEATED RBCS 0 /100WBC; PLATELET COUNT* 207 thou/uL (150-400); RDW-CV 16.1 % (10.5-14.5); WBC 9.4 thou/uL (4.0-11.0)
[2018-04-20 04:26] LABS: CALCIUM 7.9 mg/dL (8.5-10.1); CREATININE 1.3 mg/dL (0.6-1.3); MAGNESIUM 1.8 mg/dL (1.8-2.4); PHOSPHORUS* 1.9 mg/dL (2.5-4.9)
--- NOTE | 2018-04-20 04:50 | NUR ---
PATIENT HAS SLEPT WELL THROUGHOUT THE NIGHT WITHOUT ANY ISSUES NOTED. VSS ON RA. PAIN WELL CONTROLLED WITH ORAL PAIN MEDICATION AND CHARTED. NO NAUSEA OR VOMITING. DRESSING TO LEFT SIDE OF ABDOMINAL AREA IS C/D/I, AND WOUND VAC DRESSING TO MIDLINE INCISION IS C/D/I AND IS TO SUCTION. DARLEEN DRAIN IN PLACE WITH MINIMAL SEROSANGUINOUS DRAINAGE. SALGUERO TO DEPENDENT DRAINAGE WITH CLEAR/YELLOW URINE OUTPUT. PATIENT REMAINS NPO AT THIS TIME EXCEPT FOR SMALL AMOUNT OF ICE CHIPS. PORT TO RIGHT CHEST-NS @ 125ML/HR. PATIENT HAS NOT BEEN UP DURING SHIFT AND STATED THAT SHE WOULD GET UP TODAY. PATIENT ENCOURAGED TO DANGLE, BUT REFUSING DURING SHIFT SHE WANTED TO LIE DOWN AND REST. PATIENT INSTRUCTED TO USE CALL LIGHT WHEN NEEDING ASSISTANCE. HOURLY ROUNDS MADE. WILL CONTINUE WITH PLAN OF CARE AND NURSING TO MONITOR.
[2018-04-20 08:01] VITALS: BP 124/79
[2018-04-20 15:41] VITALS: BP 123/78
--- NOTE | 2018-04-20 17:56 | NUR ---
ASSUMED CARE OF PATIENT AT 1030. ALERT AND ORIENTED X4. UP WITH ASSIST X1-2 WITH WALKER AND GAIT BELT. IV IS PATENT AND INFUSING. PAIN BEING MANAGED WITH IV PAIN MEDICAITON. NAUSEA BEING MANAGED WITH IV NAUSEA MEDICATION. TOLERATING CLEAR LIQUID DIET. PATIENT GOT UP TO CHAIR FOR ABOUT 2 HOURS THIS AFTERNOON THEN WALKED TO THE DOOR AND BACK TO BED. SCD'S IN PLACE THROUGHOUT SHIFT. VSS ON ROOM AIR. HOURLY ROUNDS HAVE BEEN MAINTAINED THROUGHOUT SHIFT. CALL LIGHT IS WITHIN REACH. NURSING WILL CONTINUE TO MONITOR.
[2018-04-20 19:30] VITALS: BP 153/60
--- NOTE | 2018-04-20 20:44 | OP ---
[facility] [address] [place] [address] OPERATIVE REPORT Name: VINEET PFEIFFER Room: [address] IN M.R.#: [id number] Admission: 04/17/18 Attend Phys: Bisi Ivy MD Discharge: Date of : 57 Report #: [id number] THIS REPORT FOR: //name// CC: Bisi Bahena MD DATE OF SERVICE: 04/18/2018 PREOPERATIVE DIAGNOSES: 1. Metastatic rectal cancer. 2. Undesired ileostomy. PROCEDURES: 1. Laparotomy. 2. Ileostomy takedown. 3. Small bowel resection with anastomosis x 2. 4. Extensive lysis of adhesions for 2 hours. SURGEON: Bisi Ivy M.D. BROADCAST OPERATIONS MANAGER: Rigo Vidal DO. DRAINS: A 19-[place] Citizen DARLEEN. ESTIMATED BLOOD LOSS: 75 mL. COMPLICATIONS: None. FINDINGS: Progression of internal metastatic disease. INDICATIONS: This is a patient with history of rectal cancer. The patient initially, given low colorectal anastomosis and a temporizing ileostomy, was discussed with Pathology and seemed to have good improvement of disease on followup imaging with chemotherapy. The patient was having significant morbidity from her stoma with the dilatation, dehydration and electrolyte imbalances. Despite optimal medical management, taking these things into consideration, we thought taking down her stoma was not only her preference, but also could benefit her from the oncologic standpoint by allowing her to stay on chemo without such debilitation. DESCRIPTION OF PROCEDURE: The patient was taken to the operating room. We prepped and draped in standard sterile fashion. Timeout performed, all in agreement. We began by making an elliptical incision around the stoma, [facility] [address] [place] [address] OPERATIVE REPORT Name: VINEET PFEIFFER Room: [address] IN M.R.#: [id number] Admission: 04/17/18 Attend Phys: Bisi Ivy MD Discharge: Date of : 57 Report #: [id number] dissected down. There was severe adhesive process between underlying small bowel and the abdominal wall. Given this, we did make a midline laparotomy, primarily with a cold knife to prevent any thermal burn to the underlying bowel, next began extensive lysis of adhesions for 2 hours, primarily with scissors, small bowel from the underlying anterior abdominal wall. There was an underlying loop so adherent to a separate loop of bowel going up the stoma that entry into one side was inherent in the procedure. With these loops fully mobilized, I carefully inspected surrounding the abscess, and no evidence of any injury. I brought the stoma ends together in bnfo-co-wgnn antiperistaltic fashion, made enterotomies, fired a KELLI-55 stapler through and truncated with a 100 KELLI stapler to close the common channel, after first pulling the common enterotomy up with dialysis. Bowel appeared well perfused and had good integrity. I used additional 3-0 silk stitches to the crotch and to lambert over the top. There was an additional loop of bowel which had to be dissected free from this portion. A very small portion of small bowel was resected here in the proximal loop, again bringing together in tliv-jq-loyk antiperistaltic fashion. I irrigated copiously. I saw no evidence of any bleeding. I inspected all aspects of the bowel here as well as at all the surrounding operative field. I saw no evidence of any injury. This total inspection time following completion of procedure was approximately 30 minutes and we watched the color at the small bowel anastomosis, which appeared perfect and in line with other surrounding small bowel. I next closed the stoma site with 0 Vicryl and 0 PDS, first from under and then from over the stoma site. Because that some small bowel from this, I did require some resection of the peritoneum. It was pulled again together under some degree of tension. Given that there was still significant small bowel attached to the anterior abdominal wall inferiorly and to the right lateral of her incision, I did not go after these, given the high risk of the injury with extensive lysis in these areas. The patient's small bowel was relatively immobile, but it was only freed up enough to bring together in a tension-free manner. An 0 PDS was used in cranial caudal portions of the incision and anchored down with tapwdd-tj-inctn at the highest tension points in the middle as well. The wound was irrigated copiously and skin closed with vu. A 6-[place] Citizen drain had been placed at the level of her anastomosis intra-abdominally and anchored in place with 2-0 nylon externally. Prevena wound VAC placed. Sponge, needle and instrument counts were correct at the end of the case. The patient tolerated well. <ELECTRONICALLY SIGNED> By: Bisi Ivy MD 04/20/18 2044 0817 [id number] Ivy MD /fermin
--- NOTE | 2018-04-21 05:47 | NUR ---
PATIENT RESTED QUIETLY THROUGHOUT THE NIGHT. STATES THAT SHE IS WEAK. PATIENT NEEDS STRONG ENCOURAGEMENT TO AMBULATE. SALGUERO CATHETER PATENT, CLOUDY YELLOW RETURN. DRESSING TO ABDOMEN DRY AND INTACT WITH DARLEEN DRAIN, WOUND VAC AND BINDER IN PLACE. SCD'S ON. VITALS STABLE. IVF INFUSING ORDERED. WILL CONTINUE TO MONITOR.
[2018-04-21 06:42] LABS: ABSOLUTE BASOPHILS 0.1 thou/uL (0.0-0.2); ABSOLUTE LYMPHOCYTES 0.7 thou/uL (0.8-5.3); ABSOLUTE MONOCYTES 0.6 thou/uL (0.0-1.2); ABSOLUTE NEUTROPHILS 8.4 thou/uL (1.6-8.1); BASOPHILS 0.6 %; EOSINOPHILS 0.2 %; HEMATOCRIT 30.4 % (37.0-47.0); HEMOGLOBIN 9.9 gm/dL (12.0-15.0); LYMPHOCYTES 7.3 %; MCH 29.4 pg (26.0-34.0); MCHC 32.5 g/dL (28.0-37.0); MCV 90.7 fL (80.0-100.0); MONOCYTES 6.2 %; MPV 8.1 fl. (7.2-11.1); NUCLEATED RBCS 0 /100WBC; PLATELET COUNT* 233 thou/uL (150-400); POLYS 85.7 %; RBC 3.36 mil/uL (4.20-5.00); RDW-CV 16.4 % (10.5-14.5); WBC 9.8 thou/uL (4.0-11.0)
[2018-04-21 07:00] LABS: ALBUMIN 1.9 g/dL (3.4-5.0); MAGNESIUM 1.5 mg/dL (1.8-2.4); PHOSPHORUS* 2.7 mg/dL (2.5-4.9); TOTAL BILIRUBIN 0.4 mg/dL (<0.1-1.0); TOTAL PROTEIN 4.7 g/dL (6.4-8.2)
[2018-04-21 08:40] VITALS: BP 163/76
--- NOTE | 2018-04-21 13:29 | NUR ---
Nutrition: Pt has been NPO/CLD x5 days. Pt is weak. Has nausea. RECOMMEND PARENTERAL NUTRITION AT THIS POINT. PPN AT 125mL/HR. See RD Assessment form for details.
--- NOTE | 2018-04-21 15:24 | NUR ---
PT.KNOWN FROM PREVIOUS ADMISSION. SHE LIVES WITH HER . HE CAN ASSIST HER IF NEEDED AT DISCHARGE. SHE IS NORMALLY INDEPENDENT AT HOME. DRIVES,COOKS,ETC. HAS A SHOWER BENCH AT HOME BUT NO OTHER DME. HAS USED [facility] IN THE PAST. CM WILL FOLLOW FOR DISCHARGE PLANNING BUT PT.SHOULD NOT HAVE ANY DISCHARGE NEEDS AT DISCHARGE.
[2018-04-21 15:44] VITALS: BP 155/75
[2018-04-21 20:30] VITALS: BP 152/80
--- NOTE | 2018-04-21 20:44 | NUR ---
ASSUMED CARES OF PT AT 0700. PT IN BED ASLEEP, BED IN LOW LOCKED POSITION. CALL BUTTON AND PERSONAL ITEMS IN PT REACH. HRRR PER AUSCULTATION, LCTAB, AFEBRILE, PERRLA, VSS ON RA. RIGHT EMILY CATH PATENT WITH NS INFUSING AT 125 ML/HR. FLAT EFFECT, PT REFUSES TO GET UP OOB WITHOUT ALOT OF EDUCATION AND PERSUADING. PT A&O X4, DROWSY, PAIN AND NAUSEA REPORTED AND TREATED WITH MEDICATION. DARLEEN DRAIN SHOWS SCANT SEROSANGUINOUS FLUID, PREVENA WOUND VAC IN PLACE. ABD BINDER WORN PRESENTLY. NPO WITH ICE CHIPS. PT DOES NOT LIKE MORPHINE. PERCOCET TOLERATED AND EFFECTIVE. PT ORDERED TO AMBULATE TID BUT REPEATEDLY REFUSES. PT DID AMBULATE TWICE IN ROOM THIS SHIFT AND WAS UP TO RECLINER. PT PROGRESSING TOWARDS GOAL. HOURLY ROUNDING COMPLETED. REPORT TO HEAD PORTER FOR CONTINUED CARES.
[2018-04-22 00:26] VITALS: BP 152/68
[2018-04-22 04:00] VITALS: BP 156/70
--- NOTE | 2018-04-22 05:35 | NUR ---
UP WITH 1 ASSIST TO RECLINER. ALERT AND ORIENTED X4. HAD NAUSEA AND VOMITED X2 DARK GREEN EMESIS. ZOFAN GIVEN X1 AND PATIENT STATED WAS LITTLE HELP. REFUSED NG TUBE. DARLEEN DRAIN PATENT WITH LITTLE OUTPUT. WOUND VAC TO MIDLINE INCISION , SALGUERO CATHETER PATENT WITH CLEAR YELLOW URINE. DENIES NEED FOR PAIN MEDICATION. ABDOMINAL BINDER ON AT THIS TIME. CALL LIGHT WITHIN REACH. REMAINS MPO AT THIS TIME.
[2018-04-22 05:52] LABS: HEMATOCRIT 27.7 % (37.0-47.0); HEMOGLOBIN 9.1 gm/dL (12.0-15.0); MCH 29.6 pg (26.0-34.0); MCHC 32.7 g/dL (28.0-37.0); MCV 90.5 fL (80.0-100.0); MPV 8.2 fl. (7.2-11.1); NUCLEATED RBCS 0 /100WBC; PLATELET COUNT* 242 thou/uL (150-400); RBC 3.07 mil/uL (4.20-5.00); RDW-CV 16.8 % (10.5-14.5); WBC 8.3 thou/uL (4.0-11.0)
[2018-04-22 05:59] LABS: CALCIUM 8.3 mg/dL (8.5-10.1); MAGNESIUM 1.4 mg/dL (1.8-2.4); PHOSPHORUS* 2.1 mg/dL (2.5-4.9); POTASSIUM 3.7 mmol/L (3.5-5.1)
[2018-04-22 07:24] LABS: ABSOLUTE LYMPHOCYTES 0.5 thou/uL (0.8-5.3); ABSOLUTE MONOCYTES 0.1 thou/uL (0.0-1.2); ABSOLUTE NEUTROPHILS 7.7 thou/uL (1.6-8.1); PLATELET ESTIMATE ADEQUATE
[2018-04-22 08:03] VITALS: BP 156/69
--- NOTE | 2018-04-22 09:16 | NUR ---
ASSUMED CARES OF PT AT 0700. PT IN BED WITH EYES CLOSED, RESPONSIVE. BED IN LOW LOCKED POSITION, CALL BUTTON AND PERSONAL ITEMS IN PT REACH. PT A&O X4, HRRR PER AUSCULTATION, LCTAB, ABD BINDER ON PATIENT, DARLEEN DRAIN SCANT SEROSANGUINOUS, PREVENA WOUND VAC IN PLACE. AMBULATE TID TOLERATED. AFEBRILE, PERRLA, PT DENIES PAIN BUT NAUSEA IS DIFFICULT TO MANAGE. NO VOMITING AT THIS TIME THIS SHIFT. SCD'S IN PLACE WHILE IN BED. RIGHT EMILY CATH/SINGLE PATENT WITH FLUIDS AT 125 ML/HR. PT NPO WITH ICE CHIPS. HOURLY ROUNDING CONTINUES. WILL CONTINUE TO MONITOR PT STATUS AND PROGRESS.
--- NOTE | 2018-04-22 16:22 | NUR ---
NG TUBE PLACED IN RIGHT NARS AT 48. STAT KUB ORDERED FOR CONFIRMATION. BROWN LIQUID FLOWING IN TUBE WITHOUT SUCTION AT THIS TIME. WILL CONTINUE TO MONITOR PT STATUS AND PROGRESS. VISCOUS LIDOCAINE THROAT AND NARES ADMINISTERED FOR NUMBING.
[2018-04-22 16:37] VITALS: BP 167/72
--- NOTE | 2018-04-22 19:56 | NUR ---
REPORT TO MINERAL WOOL INSULATION SUPERVISOR FOR CONTINUED CARES. PT REMAINS IN BED WITH NG TUBE ON LOW INTERMITTANT SUCTION, BROWN LIQUID IN CANNISTER. PT FLAT DISPOSITION, RIGHT SUBCLAVIAN PICC LINE PATENT WITH NS AT 125 ML/HR. NPO WITH ICE CHIPS. VS REMAIN STABLE. HOURLY ROUNDING COMPLETED.
[2018-04-23] VITALS: BP 97/55
--- NOTE | 2018-04-23 04:36 | NUR ---
ALERT AND ORIENTED X4. NG TUBE TO LOW INTERMITTENT SUCTION DRAINING BROWN DRAINAGE. PATIENT DENIED NEED FOR PAIN OR NAUSEA MEDICATION WHEN OFFERED. ABDOMINAL DRESSINGS DRY AND INTACT. SALGUERO CATHETER PATENT WITH CLEAR YELLOW URINE. WOUND VAC PATENT. DARLEEN DRAIN PATENT. CALL LIGHT WITHIN REACH.
[2018-04-23 05:41] LABS: ABSOLUTE LYMPHOCYTES 1.1 thou/uL (0.8-5.3); ABSOLUTE MONOCYTES 0.4 thou/uL (0.0-1.2); ABSOLUTE NEUTROPHILS 5.7 thou/uL (1.6-8.1); BASOPHILS 0.7 %; EOSINOPHILS 0.7 %; HEMATOCRIT 26.3 % (37.0-47.0); HEMOGLOBIN 8.6 gm/dL (12.0-15.0); LYMPHOCYTES 14.7 %; MCH 29.8 pg (26.0-34.0); MCHC 32.8 g/dL (28.0-37.0); MCV 90.8 fL (80.0-100.0); MONOCYTES 5.8 %; MPV 8.7 fl. (7.2-11.1); NUCLEATED RBCS 0 /100WBC; PLATELET COUNT* 253 thou/uL (150-400); POLYS 78.1 %; RDW-CV 16.3 % (10.5-14.5); WBC 7.3 thou/uL (4.0-11.0)
[2018-04-23 06:02] LABS: ALBUMIN 1.8 g/dL (3.4-5.0); CALCIUM 7.5 mg/dL (8.5-10.1); CREATININE 0.9 mg/dL (0.6-1.3); MAGNESIUM 1.3 mg/dL (1.8-2.4); PHOSPHORUS* 2.4 mg/dL (2.5-4.9); POTASSIUM 3.4 mmol/L (3.5-5.1); TOTAL BILIRUBIN 0.3 mg/dL (<0.1-1.0); TOTAL PROTEIN 4.4 g/dL (6.4-8.2)
[2018-04-23 08:30] VITALS: BP 117/51
--- NOTE | 2018-04-23 10:44 | NUR ---
ASSUMED CARES OF PT AT 0700. PT IN BED, BED IN LOW LOCKED POSITION. CALL BUTTON AND PERSONAL ITEMS IN PT REACH. PT A&O X4, DENIES PAIN, STILL SOME NAUSEA WITH NG TUBE ON INTERMITTANT SUCTION, LIGHT GREEN FLUID IN CANNISTER. HRRR PER AUSCULTATION, LCTAB, AFEBRILE, PERRLA. SALGUERO CATH PATENT WITH CLEAR YELLOW URINE, DARLEEN DRAIN 10 ML SEROSANGUINEOUS FLUID PRESENT, WOUND VAC IN PLACE ON RIGHT ABD. NG TUBE ON 48 MARKER. LAST BM 6-7 DAYS AGO, PT REPORTS SOME ABD GRUMBLING AND POSSIBLE GAS STARTING. RIGHT EMILY CATH WITH FLUIDS INFUSING, SEE MAR. HOURLY ROUNDING CONTINUES. WILL CONTINUE TO MONITOR PT PROGRESS AND STATUS. PT UP TO RECLINER AFTER XRAY. PLANS TO CLEAN UP AND D/C SALGUERO PER DR. ARIZA'S ORDERS.
--- NOTE | 2018-04-23 15:27 | NUR ---
PT PRODUCED A DARK BROWN, LOOSE BOWEL MOVEMENT, LARGE IN BATHROOM. SALGUERO CATHETER REMOVED, MEDIUM YELLOW WITH SEDIMENT PRESENT. NG TUBE CONTINUES LOW INTERMITTANT SUCTION WITH GREEN BILE IN CANNISTER. PT ASKING FOR WATER, JUICE, COFFEE, ANYTHING TO DRINK BESIDES ICE CHIPS, DOCTOR TO BE CONTACTED. PT UP IN RECLINER MOST OF SHIFT. PT AMBULATED SBA TO BATHROOM. FLUIDS CONTINUE TO INFUSE, TOLERATED, SEE MAR. PT CONTINUES TO DENY PAIN.
[2018-04-23 16:55] VITALS: BP 178/68
--- NOTE | 2018-04-23 19:28 | NUR ---
REPORT TO FOOD BEVERAGE SERVER FOR CONTINUED CARES. PT PROGRESSING WELL. NG TUBE CLAMPED PER DR. DE LEÓN UNLESS PT EXHIBITS MORE N/V. DR. DE LEÓN STATED PT MAY CONSUME WATER, CLEAR JUICES, JELLO, ICEES TOLERATED. PT AMBULATING MORE, DENIES N/V. SALGUERO CATHETER REMOVED, PT SBA TO BATHROOM, TWO BM DURING THIS SHIFT/LOOSE. SANGUINOUS FLUID IN DARLEEN THIS SHIFT (70ML), WOUND VAC IN PLACE, DRESSING C/D/I LOWER MID ABD. IV IN RIGHT SUBCLAVEIAN PICC PATENT WITH FLUIDS INFUSING. PT MAY CHEW GUM AND SUCK ON JOLLY RANCHER CANDY, NO RED CANDY. INITIATE LOW INTERMITTANT SUCTION AGAIN IF PT HAS MORE N/V, OTHERWISE DR MAY CONSIDER REMOVING NG TOMORROW, THEY WILL REEVALUATE. HOURLY ROUNDING COMPLETED.
[2018-04-23 20:30] VITALS: BP 148/68
[2018-04-24 00:03] VITALS: BP 114/63
[2018-04-24 04:18] LABS: HEMATOCRIT 28.3 % (37.0-47.0); HEMOGLOBIN 9.3 gm/dL (12.0-15.0); MCH 29.4 pg (26.0-34.0); MCHC 32.9 g/dL (28.0-37.0); MCV 89.3 fL (80.0-100.0); MPV 8.1 fl. (7.2-11.1); RBC 3.17 mil/uL (4.20-5.00); RDW-CV 16.3 % (10.5-14.5); WBC 9.1 thou/uL (4.0-11.0)
[2018-04-24 04:34] VITALS: BP 125/59
--- NOTE | 2018-04-24 04:34 | NUR ---
ALERT AND ORIENTED X4. UP WITH STAND BY ASSIST TO BATHROOM. VOIDING WITHOUT DIFFICULTY. NG REMAINS CLAMPED AT THIS TIME. NO C/O N/V OR PAIN. DRY DRESSINGS COVERED BY ABDOMINAL BINDER. WOUND VAC REMAINS IN PLACE WITH NO DRAINAGE NOTED. DARLEEN DRAIN PATENT WITH DARK SANGUINEOUS DRAINAGE. DENIES NEED FOR PAIN OR NAUSEA MEDICATIONS. CALL LIGHT WITHIN REACH.
[2018-04-24 04:45] LABS: ALBUMIN 1.9 g/dL (3.4-5.0); CALCIUM 7.7 mg/dL (8.5-10.1); CREATININE 0.9 mg/dL (0.6-1.3); MAGNESIUM 1.2 mg/dL (1.8-2.4); PHOSPHORUS* 1.8 mg/dL (2.5-4.9); TOTAL BILIRUBIN 0.3 mg/dL (<0.1-1.0); TOTAL PROTEIN 5.2 g/dL (6.4-8.2)
[2018-04-24 05:08] LABS: POTASSIUM 2.7 mmol/L (3.5-5.1)
[2018-04-24 09:27] VITALS: BP 146/61
--- NOTE | 2018-04-24 17:40 | NUR ---
PATIENT IS ALERT AND ORIENTED TODAY VERY PLEASANT. UP AD LINDA IN ROOM IN TO THE RESTROOM, NO COMPLAINTS OF ANY PAIN AT TALL TODAY. PORT IS ACCESSED WITH FLUIDS RUNNING AND POTASSIUM RUNNING PER PROTOCOL, ONE MORE BAG NEEDED. VITAL SIGNS STABLE ON ROOM AIR. CALL LIGHT IS IN REACH, WILL CONTINUE TO MONITOR.
[2018-04-24 18:15] VITALS: BP 146/61
[2018-04-24 19:55] LABS: MAGNESIUM 1.2 mg/dL (1.8-2.4); PHOSPHORUS* 1.5 mg/dL (2.5-4.9)
[2018-04-24 21:15] VITALS: BP 143/70
[2018-04-24 23:58] VITALS: BP 155/70
[2018-04-25 03:39] VITALS: BP 144/79
--- NOTE | 2018-04-25 05:51 | NUR ---
PATIENT ALERT AND ORIENTED X 4. VITALS STABLE. PATIENT DENIES PAIN AND NAUSEA. TOLERATING CLEAR LIQUID DIET. UP INDEPENDENTLY IN ROOM. FLUIDS INFUSING PER ORDER. DARLEEN AND WOUND VAC IN PLACE. SLEPT COMFORTABLY THROUGH THE NIGHT. HOURLY ROUNDS. NURSING WILL CONTINUE TO MONITOR.
[2018-04-25 06:43] LABS: HEMATOCRIT 26.9 % (37.0-47.0); HEMOGLOBIN 8.8 gm/dL (12.0-15.0); MCH 29.4 pg (26.0-34.0); MCHC 32.8 g/dL (28.0-37.0); MCV 89.6 fL (80.0-100.0); MPV 8.6 fl. (7.2-11.1); RDW-CV 16.3 % (10.5-14.5); WBC 9.6 thou/uL (4.0-11.0)
[2018-04-25 06:54] LABS: CALCIUM 7.8 mg/dL (8.5-10.1); CREATININE 0.8 mg/dL (0.6-1.3); MAGNESIUM 1.1 mg/dL (1.8-2.4); PHOSPHORUS* 1.9 mg/dL (2.5-4.9); POTASSIUM 3.4 mmol/L (3.5-5.1)
[2018-04-25 08:45] VITALS: BP 136/68
--- NOTE | 2018-04-25 12:13 | NUR ---
CM SPOKE TO THE PATIENT TO DISCUSS DISCHARGE PLANNING NEEDS AND ANY QUESTIONS OR CONCERNS THAT SHE MAY HAVE. PATIENT DOES NOT ANTICIPATE ANY DISCHARGE PLANNING NEEDS, AND HAS NO QUESTIONS OR CONCERNS AT THIS TIME. CM WILL REMAIN AVAILABLE TO ASSIST AND FOLLOW NEEDED.
[2018-04-25 16:24] VITALS: BP 136/71
--- NOTE | 2018-04-25 18:03 | NUR ---
PATIENT IS ALERT AND ORIENTED TODAY VERY PLEASANT. UP AD LINDA IN ROOM, NO COMPLAINTS OF PAIN TODAY. TOLERATING FULL LIQUID DIET TODAY WITH NO NAUSEA. ELECTROLYTES ARE STILL LOW HAVE BEEN REPLACING MAG TODAY. CALL LIGHT IS IN REACH. WILL CONTINUE TO MONITOR.
[2018-04-26] VITALS: BP 148/56
[2018-04-26 04:33] VITALS: BP 152/47
[2018-04-26 07:12] LABS: HEMATOCRIT 27.3 % (37.0-47.0); HEMOGLOBIN 9.1 gm/dL (12.0-15.0); MCH 29.6 pg (26.0-34.0); MCHC 33.3 g/dL (28.0-37.0); MCV 88.8 fL (80.0-100.0); MPV 7.8 fl. (7.2-11.1); RBC 3.08 mil/uL (4.20-5.00); RDW-CV 16.7 % (10.5-14.5); WBC 8.4 thou/uL (4.0-11.0)
[2018-04-26 07:42] LABS: CALCIUM 7.5 mg/dL (8.5-10.1); CREATININE 0.8 mg/dL (0.6-1.3); MAGNESIUM 1.1 mg/dL (1.8-2.4); PHOSPHORUS* 2.5 mg/dL (2.5-4.9); POTASSIUM 3.8 mmol/L (3.5-5.1)
[2018-04-26 08:18] VITALS: BP 121/66
--- NOTE | 2018-04-26 17:12 | NUR ---
PT WITHOUT C/O TODAY, DARLEEN DRAIN WITH SMALL AMOUNT LIGHT BROWN FLUID. ABD MIDLINE INCISION INTACT, DRESSING CDI
[2018-04-26 17:40] VITALS: BP 123/68
[2018-04-26 23:59] VITALS: BP 148/62
--- NOTE | 2018-04-27 05:58 | NUR ---
PATIENT SLEPT WELL DURING THIS SHIFT. PT DENIES PAIN AT THIS TIME. PT UP AD LINDA IN ROOM. PT WITH SALINE LOCK IN LT FOREARM, PATENT. PT REQUESTED FENTANYL 25MCG IV X1 FOR BACK PAIN. PT RECEIVED BREATHING TREATMENTS. PT IS ON ROOM AIR. FREQUENTLY USED ITEMS AND CALL LIGHT WITHIN REACH. SIDERAIILS UPX2. WILL CONTINUE TO MONITOR.
--- NOTE | 2018-04-27 06:05 | NUR ---
PATIENT SLEPT WELL DURING THIS SHIFT. PT UP AD LINDA IN ROOM. PT WITH RT PAC HAS FLUIDS INFUSING PER DR ORDER. PT DENIES PAIN ON THIS SHIFT. PT WITH TEMP OF 101.0 AT MIDNIGHT. TEMP RECHECKED TWICE AND THE LAST TIME TEMP FOUND TO BE 98.9. PT FELT THIS WAS BECAUSE SHE HAD ON SEVERAL BLANKETS BUT REFUSED TO REMOVE THEM STATING SHE WAS COMFORTABLE. PT IS ON ROOM AIR. PT WITH MIDLINE INCISION DSG C/D/I, ABDOMINAL BINDER IN PLACE. DARLEEN DRAIN WITH MINIMAL OUTPUT. PT DENIES NEEDS AT THIS TIME. FREQUENTLY USED ITEMS AND CALL LIGHT WITHIN REACH. SIDERAILS UPX2. WILL CONTINUE TO MONITOR.
[2018-04-27 08:30] LABS: HEMATOCRIT 26.8 % (37.0-47.0); HEMOGLOBIN 8.7 gm/dL (12.0-15.0); MCH 28.9 pg (26.0-34.0); MCHC 32.3 g/dL (28.0-37.0); MCV 89.3 fL (80.0-100.0); MPV 7.9 fl. (7.2-11.1); RBC 3.01 mil/uL (4.20-5.00); RDW-CV 16.3 % (10.5-14.5)
[2018-04-27 08:31] LABS: CALCIUM 7.3 mg/dL (8.5-10.1); CREATININE 1.1 mg/dL (0.6-1.3); PHOSPHORUS* 2.1 mg/dL (2.5-4.9); POTASSIUM 3.6 mmol/L (3.5-5.1)
[2018-04-27 08:36] LABS: MAGNESIUM 0.9 mg/dL (1.8-2.4)
[2018-04-27 09:00] VITALS: BP 123/44
[2018-04-27 16:26] VITALS: BP 123/56
--- NOTE | 2018-04-27 17:36 | NUR ---
PATIENT IS ALERT AND ORIENTED TODAY VERY PLEASANT. TOLERATING DIET WELL, NO COMPLAINTS OF PAIN OR NAUSEA TODAY. MAGNESIUM IS STILL CRITICALLY LOW. CALL LIGHT INCISION IS HEALING WELL. CALL LIGHT IS IN REACH, WILL CONTINUE TO MONITOR.
[2018-04-27 20:00] VITALS: BP 138/65
[2018-04-27 22:04] LABS: POTASSIUM 3.8 mmol/L (3.5-5.1)
--- NOTE | 2018-04-28 05:46 | NUR ---
PATIENT REMAINS ALERT AND ORIENTED X4 THROUGHOUT NIGHT. VITAL SIGNS STABLE ON ROOM AIR. NO IV AT THIS TIME AND PORTACATH WAS DEACCESSED ON DAY SHIFT. PATIENT CONTINUES TO DECLINE LETTING NURSING REPLACE HER MAGNESIUM VIA IV STATING IT WILL JUST CAUSE MORE GI UPSET. REQUESTING TO REST UNTIL MORNING AND SPEAK WITH THE PHYSICIAN ABOUT REPLACING ELECTROLYTES. PATIENT EDUCATION ON ELECTROLYTE PROTOCOL. TRANSFERS AD LINDA TO THE RESTOOM. MAINTAINED SPECIAL CONTACT ISOLATION. TOLERATING DIET. DENIES PAIN OR NAUSEA. DARLEEN DRAIN IN PLACE AND PATENT. ABDOMINAL BINDER IN PLACE. REPOSITIONING SELF IN BED. HOURLY ROUNDING COMPLETE. CALL LIGHT WITHIN REACH. NURSING WILL CONTINUE TO MONITOR.
[2018-04-28 08:00] VITALS: BP 138/85
[2018-04-28 08:52] LABS: HEMATOCRIT 25.2 % (37.0-47.0); HEMOGLOBIN 8.2 gm/dL (12.0-15.0); MCHC 32.5 g/dL (28.0-37.0); MCV 89.2 fL (80.0-100.0); MPV 7.8 fl. (7.2-11.1); RBC 2.82 mil/uL (4.20-5.00); RDW-CV 16.6 % (10.5-14.5); WBC 10.2 thou/uL (4.0-11.0)
[2018-04-28 09:01] LABS: CALCIUM 7.8 mg/dL (8.5-10.1); CREATININE 1.1 mg/dL (0.6-1.3); MAGNESIUM 1.1 mg/dL (1.8-2.4); PHOSPHORUS* 2.8 mg/dL (2.5-4.9); POTASSIUM 3.4 mmol/L (3.5-5.1)
[2018-04-28 12:00] VITALS: BP 116/63
[2018-04-28 16:25] VITALS: BP 108/51
--- NOTE | 2018-04-28 16:43 | NUR ---
PT.MAY POTENTIALLY DISCHARGE OVER THE WEEKEND. SHE SAID HER CAN HELP HER. SHE DID NOT FEEL SHE WOULD NEED HOME HEALTH. NO DISCHARGE NEEDS.
[2018-04-28 21:25] VITALS: BP 118/50
[2018-04-29] VITALS (7 sets, daily range): BP systolic 106–145; BP diastolic 37–61
[2018-04-29 04:42] LABS: HEMATOCRIT 23.5 % (37.0-47.0); HEMOGLOBIN 7.7 gm/dL (12.0-15.0); MCH 29.2 pg (26.0-34.0); MCHC 32.7 g/dL (28.0-37.0); MCV 89.3 fL (80.0-100.0); MPV 7.8 fl. (7.2-11.1); RBC 2.63 mil/uL (4.20-5.00); RDW-CV 16.3 % (10.5-14.5); WBC 8.4 thou/uL (4.0-11.0)
--- NOTE | 2018-04-29 05:23 | NUR ---
ALERT AND ORIENTED X4. UP AD LINDA TO BATHROOM, DR NOTIFIED OF ELEVATED TEMPATURE AND THAT CONTENTS OF DARLEEN DRAIN CLOUDY THICK YELLOWISH FERNANDEZ IN COLOR WITH FOUL ODER. NEW ORDERS NOTED. IVF RUNNING THROUGH PORT A CATH WITHOUT DIFFICULTY. STILL HAVING LOOSE STOOLS TODAY. ANTIBIODICS INFUSING AT THIS TIME WITHOUT DIFFICULTY. DRY DRESSINGS OVER ABDOMINAL INCISIONS. CALL LIGHT WITHIN REACH. NPO AT THIS TIME.
[2018-04-29 05:27] LABS: ALBUMIN 1.6 g/dL (3.4-5.0); CALCIUM 7.4 mg/dL (8.5-10.1); MAGNESIUM 1.9 mg/dL (1.8-2.4); POTASSIUM 4.1 mmol/L (3.5-5.1); TOTAL BILIRUBIN 0.6 mg/dL (<0.1-1.0); TOTAL PROTEIN 4.4 g/dL (6.4-8.2)
--- NOTE | 2018-04-29 17:54 | NUR ---
ALERT AND ORIENTED X4. UP AD LINDA IN ROOM. IV IS PATENT AND INFUSING. DENIES NEED FOR PAIN MEDICATION. TOLERATING FULL LIQUID DIET. DARLEEN DRAIN IN PLACE AND DRAINING BROWN DRAINAGE. DRESSING ON DARLEEN HAS MINIMAL DRAINAGE. VSS ON ROOM AIR. HOURLY ROUNDS HAVE BEEN MAINTAINED THROUGHOUT SHIFT. CALL LIGHT IS WITHIN REACH. NURSING WILL CONTINUE TO MONITOR.
[2018-04-30 03:32] VITALS: BP 97/40
--- NOTE | 2018-04-30 04:56 | NUR ---
PT SLEPT AT INTERVALS DURING THE NIGHT, IV FLUIDS AND ANTIBIOTICS GIVEN, PRN TYLENOL LAST NIGHT, UP AD LINDA, PLEASANT, DARLEEN DRAIN INTACT AND ABD BINDER ON, CALL LIGHT IN REACH, WILL CONTINUE TO MONITOR
[2018-04-30 06:45] LABS: ABSOLUTE EOSINOPHILS 0.1 thou/uL (0.0-0.7); ABSOLUTE NEUTROPHILS 6.3 thou/uL (1.6-8.1); BASOPHILS 0.4 %; EOSINOPHILS 1.6 %; HEMATOCRIT 22.6 % (37.0-47.0); HEMOGLOBIN 7.3 gm/dL (12.0-15.0); LYMPHOCYTES 12.2 %; MCH 28.6 pg (26.0-34.0); MCHC 32.2 g/dL (28.0-37.0); MCV 88.8 fL (80.0-100.0); MONOCYTES 11.8 %; MPV 7.8 fl. (7.2-11.1); NUCLEATED RBCS 0 /100WBC; PLATELET COUNT* 360 thou/uL (150-400); RBC 2.55 mil/uL (4.20-5.00); RDW-CV 16.7 % (10.5-14.5); WBC 8.5 thou/uL (4.0-11.0)
[2018-04-30 06:47] LABS: CALCIUM 7.9 mg/dL (8.5-10.1); POTASSIUM 3.7 mmol/L (3.5-5.1)
[2018-04-30] MEDS ORDERED: AUGMENTIN 875-1 EACH PO ×3 (10:20→10:31)
[2018-04-30 13:58] VITALS: BP 97/40
--- NOTE | 2018-04-30 15:09 | NUR ---
PATIENT A&OX4, ROOM AIR, RIGHT CHEST PORTICATH, DEACCESSED AND HEPARIN LOCKED. UP WITH ASSISTX1 STEADY GIAT. C/O MINIMAL PAIN THIS A.M., TYLENOL GIVEN, IMPROVEMENT. MIDLINE INCISION AND HORIZONTAL INCISION LLA. DRESSING CHANGED. EDUCATION GIVEN TO PATIENT ON HOW TO CHANGE AT HOME. PATIENT DISCHARGED TODAY. 40ML OF FERNANDEZ ODOROUS DRAINAGE FROM DARLEEN DRAIN. REVIEWED DISCHARGE PAPEROWRK WITH PATIENT WHILE FAMILY AT BEDSIDE. NO OTHER CONCERNS AT THIS TIME. PATIENT LEFT UNIT AT 1500 VIA W/C WITH NURSING STAFF AND SPOUSE. ALL BELONGINGS TAKEN WITH PATIENT. APPROPRIATE AND COOPORATIVE WITH CARE.
--- NOTE | 2018-08-17 16:11 | PATH ---
[facility] [address] [place] [address] PATHOLOGY RPT PROCEDURE Name: ERICA EPPS Room: [address] IN ..#: [id number] Admission: 04/17/18 Date of : 57 Discharge: 04/30/18 Report #: [id number] Path Case #: [id number] [facility] Accession Number: [id number] . 01 Material submitted: . SMALL BOWEL . 01 Clinical history: . Colon cancer, ileostomy closure. . 02 Diagnosis: SMALL BOWEL: - STOMA INCLUDING SKIN AND MULTIPLE SEGMENTS OF SMALL INTESTINE WITH MULTIPLE FOCI OF ADENOCARCINOMA TYPICAL OF COLORECTAL PRIMARY. SEE COMMENT. LBQ/04/21/2018 . 02 Comment: Multiple foci of moderately differentiated adenocarcinoma are seen in sections from all slides with the exception of that taken from the open margin of the dominant segment of bowel (A1) including foci involving fat, bowel wall and near the junction of skin with bowel mucosa. Discussed with Dr. Ivy at approximately 1530 on 04/21/2018. (MICHOACANO:db; 04/21/2018) . 02 Electronically signed: . Aris Stoll MD, Pathologist NPI- [id number] . 01 Gross description: . Received in formalin labeled "Erica Epps, small bowel" is a pink-red hemorrhagic and ragged portion of bowel which measures 10.5 x 2.5 cm. The serosa is hemorrhagic, and there are multiple torn areas and transmural defects. There is a possible ostomy site on the midportion of the bowel which measures 2.3 x 2.2 cm, and has a thin rim of liang-white possible skin or soft tissue. The bowel resection margin on one aspect is open, and the opposite aspect is closed with a staple line. Also present within the container is a separate segment of bowel measuring 1.0 cm in length and 3.2 cm in diameter, which has a staple line on one aspect. Also within the container are two smaller portions of liang-white ragged soft tissue which measure 1.3 x 1.0 x 0.6 cm and 2.8 x 1.3 x 0.3 cm. Lymphedema Therapist sections are submitted as follows: A1 open margin on segment of bowel A2 staple line margin on segment of bowel A3-A4 disability representative sections of ostomy A5 disability representative areas of defects A6 disability representative sections of separate fragments of tissue [place] [place]ATR[place] [address] PATHOLOGY RPT PROCEDURE Name: ERICA EPPS Room: [address] IN [facility]#: [id number] Admission: 04/17/18 Date of : 57 Discharge: 04/30/18 Report #: [id number] Path Case #: [id number] . 02 CPT . [id number] Specimen Comment: A courtesy copy of this report has been sent to Specimen Comment: [phone], . Specimen Comment: A duplicate report has been generated due to demographic updates. Performed at: [address] [facility] [place] [address], [place], [place] [id number] MD Vivek Oro MD Phone: [phone] Performed at: [address] [facility] [address], [place] [id number] MD Aris Stoll MD Phone: [phone]
== END 2018-04-30 15:00 | disposition home or self-care (01) | DRG 329 ==
LOC: M.PRE 14:21 → M.ORTHSURG 15:26 → M.3W 15:26 → M.PRE 04-18 07:33 → M.ORTHSURG 04-18 13:19
PROVIDERS: Surgery; ADMIT Surgery
PROC: 0DBB0ZZ Excision of Ileum, Open Approach (ICD-10-PCS; principal; 2018-04-18)
PROC: 0DT80ZZ Resection of Small Intestine, Open Approach (ICD-10-PCS; principal; 2018-04-18)
PROC: 0DN80ZZ Release Small Intestine, Open Approach (ICD-10-PCS; principal; 2018-04-18)
DX: C19 Malignant neoplasm of rectosigmoid junction (principal); N17.0 Acute kidney failure with tubular necrosis; K56.609 Unspecified intestinal obstruction, unspecified as to partial versus complete obstruction; K56.7 Ileus, unspecified; C78.6 Secondary malignant neoplasm of retroperitoneum and peritoneum; E44.1 Mild protein-calorie malnutrition; F32.9 Major depressive disorder, single episode, unspecified; E66.9 Obesity, unspecified; E86.0 Dehydration; E83.39 Other disorders of phosphorus metabolism; E83.42 Hypomagnesemia; E87.6 Hypokalemia; Z79.2 Long term (current) use of antibiotics; Z79.899 Other long term (current) drug therapy; Z90.710 Acquired absence of both cervix and uterus; Z90.49 Acquired absence of other specified parts of digestive tract; Z80.0 Family history of malignant neoplasm of digestive organs; Z87.891 Personal history of nicotine dependence; Z68.28 Body mass index [BMI] 28.0-28.9, adult

== ENCOUNTER → 2018-05-16 | Outpatient (CLI) | payer OTHER ==
[~2018-05-16] MED LIST changes: +AUGMENTIN 875-1 EACH PO
== END ==
LOC: M.WC 09:25
DX: T81.89XA Other complications of procedures, not elsewhere classified, initial encounter (principal); Z87.891 Personal history of nicotine dependence; Z90.710 Acquired absence of both cervix and uterus; Y92.89 Other specified places as the place of occurrence of the external cause; Y83.8 Other surgical procedures as the cause of abnormal reaction of the patient, or of later complication, without mention of misadventure at the time of the procedure

== ENCOUNTER → 2018-05-18 | Outpatient (CLI) | payer OTHER | END | disposition home or self-care (01) | LOC: M.RAD 05-17 09:00 | DX: K63.2 Fistula of intestine (principal); C18.9 Malignant neoplasm of colon, unspecified; Z79.899 Other long term (current) drug therapy; Z79.891 Long term (current) use of opiate analgesic ==

== ENCOUNTER → 2018-05-23 | Outpatient (CLI) | payer OTHER | LOC: M.WC 05:04 | DX: T81.89XD Other complications of procedures, not elsewhere classified, subsequent encounter (principal); Z87.891 Personal history of nicotine dependence; Z90.710 Acquired absence of both cervix and uterus; Y83.8 Other surgical procedures as the cause of abnormal reaction of the patient, or of later complication, without mention of misadventure at the time of the procedure ==

== ENCOUNTER → 2018-05-30 | Outpatient (CLI) | payer OTHER | LOC: M.WC 04:43 | DX: T81.89XD Other complications of procedures, not elsewhere classified, subsequent encounter (principal); Z87.891 Personal history of nicotine dependence; Z90.710 Acquired absence of both cervix and uterus; Y83.8 Other surgical procedures as the cause of abnormal reaction of the patient, or of later complication, without mention of misadventure at the time of the procedure ==

== ENCOUNTER → 2018-06-06 | Outpatient (CLI) | payer OTHER | LOC: M.WC 05:10 | DX: T81.89XD Other complications of procedures, not elsewhere classified, subsequent encounter (principal); Z85.038 Personal history of other malignant neoplasm of large intestine; Z87.891 Personal history of nicotine dependence; Z86.718 Personal history of other venous thrombosis and embolism; Y83.8 Other surgical procedures as the cause of abnormal reaction of the patient, or of later complication, without mention of misadventure at the time of the procedure ==

== ENCOUNTER → 2018-06-27 | Outpatient (CLI) | payer OTHER ==
[2018-06-27 12:21] LABS: HEMATOCRIT 38.9 % (37.0-47.0); HEMOGLOBIN 12.3 gm/dL (12.0-15.0); MCH 27.4 pg (26.0-34.0); MCHC 31.6 g/dL (28.0-37.0); MCV 86.8 fL (80.0-100.0); MPV 7.6 fl. (7.2-11.1); NUCLEATED RBCS 0 /100WBC; PLATELET COUNT* 715 thou/uL (150-400); RBC 4.48 mil/uL (4.20-5.00); RDW-CV 18.1 % (10.5-14.5); WBC 10.2 thou/uL (4.0-11.0)
[2018-06-27 12:30] LABS: ALBUMIN 2.9 g/dL (3.4-5.0); CALCIUM 9.7 mg/dL (8.5-10.1); CREATININE 1.3 mg/dL (0.6-1.3); POTASSIUM 3.8 mmol/L (3.5-5.1); TOTAL BILIRUBIN 0.5 mg/dL (<0.1-1.0); TOTAL PROTEIN 8.1 g/dL (6.4-8.2)
[2018-06-27 13:05] LABS: ABSOLUTE BASOPHILS 0.1 thou/uL (0.0-0.2); ABSOLUTE LYMPHOCYTES 1.3 thou/uL (0.8-5.3); ABSOLUTE MONOCYTES 0.6 thou/uL (0.0-1.2); ABSOLUTE NEUTROPHILS 8.2 thou/uL (1.6-8.1)
[2018-06-27 13:06] LABS: LARGE PLATELETS FEW; PLATELET ESTIMATE INCREASED
[2018-06-27 13:07] LABS: ANISOCYTOSIS Occasional
== END ==
LOC: M.CT 11:55
PROVIDERS: Surgery
DX: C78.7 Secondary malignant neoplasm of liver and intrahepatic bile duct (principal); K76.0 Fatty (change of) liver, not elsewhere classified; C18.9 Malignant neoplasm of colon, unspecified; N20.0 Calculus of kidney; J90 Pleural effusion, not elsewhere classified; R91.1 Solitary pulmonary nodule

== ENCOUNTER → 2018-06-30 | Outpatient (CLI) | payer OTHER ==
[~2018-06-30] VITALS: Ht 170.2 cm; Wt 73.5 kg
[2018-06-30] VITALS (14 sets, daily range): BP systolic 121–156; BP diastolic 56–86
[2018-06-30 10:57] LABS: HEMATOCRIT 38.4 % (37.0-47.0); MCH 26.7 pg (26.0-34.0); MCHC 31.4 g/dL (28.0-37.0); MCV 85.1 fL (80.0-100.0); MPV 7.9 fl. (7.2-11.1); RBC 4.51 mil/uL (4.20-5.00); RDW-CV 18.2 % (10.5-14.5); WBC 11.2 thou/uL (4.0-11.0)
[2018-06-30 11:14] LABS: APTT 23.7 Seconds (25.0-31.3); INR 1.1; PROTIME 10.9 Seconds (9.20-11.50)
== END | disposition home or self-care (01) ==
LOC: M.INT 09:00
PROVIDERS: Radiology Diagnostic Radiology
DX: L02.211 Cutaneous abscess of abdominal wall (principal); T81.4XXA Infection following a procedure, initial encounter; Z98.0 Intestinal bypass and anastomosis status; Z85.038 Personal history of other malignant neoplasm of large intestine; Z90.710 Acquired absence of both cervix and uterus; Z90.49 Acquired absence of other specified parts of digestive tract; Z79.01 Long term (current) use of anticoagulants; Z87.891 Personal history of nicotine dependence; Z98.890 Other specified postprocedural states; Z79.899 Other long term (current) drug therapy

== ENCOUNTER → 2018-07-06 | Outpatient (CLI) | payer OTHER ==
[~2018-07-06] VITALS: Ht 170.2 cm; Wt 73.9 kg
[2018-07-06 12:36] VITALS: BP 151/77
== END ==
LOC: M.CT 11:44
DX: J90 Pleural effusion, not elsewhere classified (principal); C22.8 Malignant neoplasm of liver, primary, unspecified as to type

== ENCOUNTER → 2018-07-24 | Outpatient (CLI) | payer OTHER ==
[2018-07-24 12:00] VITALS: BP 107/69
== END ==
LOC: M.CT 07-06 13:48
DX: J90 Pleural effusion, not elsewhere classified (principal); C18.9 Malignant neoplasm of colon, unspecified; C78.7 Secondary malignant neoplasm of liver and intrahepatic bile duct

== ENCOUNTER 2018-10-03 16:11 | Inpatient (IN) | payer OTHER ==
[~2018-10-03] VITALS: Ht 170.2 cm; Wt 67.4 kg
[2018-10-03 16:24] VITALS: BP 127/80
[2018-10-03] MEDS ORDERED: ZOFRAN ODT4 MG PO (16:29)
[2018-10-03 17:16] LABS: ABSOLUTE LYMPHOCYTES 1.2 thou/uL (0.8-5.3); ABSOLUTE MONOCYTES 0.8 thou/uL (0.0-1.2); ABSOLUTE NEUTROPHILS 5.9 thou/uL (1.6-8.1); BASOPHILS 0.5 %; EOSINOPHILS 0.5 %; HEMATOCRIT 37.4 % (37.0-47.0); HEMOGLOBIN 11.9 gm/dL (12.0-15.0); LYMPHOCYTES 14.8 %; MCH 25.7 pg (26.0-34.0); MCHC 31.9 g/dL (28.0-37.0); MCV 80.6 fL (80.0-100.0); MPV 7.9 fl. (7.2-11.1); NUCLEATED RBCS 0 /100WBC; PLATELET COUNT* 582 thou/uL (150-400); POLYS 74.2 %; RBC 4.64 mil/uL (4.20-5.00); WBC 7.9 thou/uL (4.0-11.0)
[2018-10-03 17:21] LABS: CALCIUM 9.7 mg/dL (8.5-10.1); CREATININE 1.3 mg/dL (0.6-1.3); POTASSIUM 3.6 mmol/L (3.5-5.1)
[2018-10-03 17:22] LABS: INR 1.2; PROTIME 12.4 Seconds (9.20-11.50)
[2018-10-03 17:25] LABS: ALBUMIN 2.8 g/dL (3.4-5.0); TOTAL BILIRUBIN 0.8 mg/dL (<0.1-1.0); TOTAL PROTEIN 7.4 g/dL (6.4-8.2)
[2018-10-03 19:27] LABS: URINE BLOOD 3+ (Negative); URINE CLARITY CLEAR; URINE COLOR YELLOW; URINE GLUCOSE-RANDOM NEGATIVE (Negative); URINE KETONES 1+ (Negative); URINE LEUKOCYTES-REFLEX TRACE (Negative); URINE PROTEIN 2+ (Negative); URINE SPECIFIC GRAVITY >= 1.030 (1.005-1.030)
[2018-10-03 19:34] LABS: ICTOTEST (BILI CONFIRMATORY) Negative (Negative); URINE BILIRUBIN 2+ (Negative); URINE NITRITE-REFLEX POSITIVE (Negative)
[2018-10-03 19:40] LABS: SQUAMOUS NONE SEEN /LPF (0-3)
[2018-10-03 19:41] LABS: BACTERIA-REFLEX None Seen /HPF (None Seen); CASTS None Seen /LPF (None Seen); CRYSTALS None Seen /LPF (None Seen); URINE RBC None Seen /HPF (0-2); URINE WBC-REFLEX None Seen /HPF (0-5)
[2018-10-03 21:10] VITALS: BP 130/60
[2018-10-03 21:15] VITALS: BP 148/65
[2018-10-04 04:12] LABS: HEMATOCRIT 31.8 % (37.0-47.0); HEMOGLOBIN 10.1 gm/dL (12.0-15.0); MCH 25.7 pg (26.0-34.0); MCHC 31.7 g/dL (28.0-37.0); MCV 81.1 fL (80.0-100.0); RBC 3.92 mil/uL (4.20-5.00); RDW-CV 17.7 % (10.5-14.5); WBC 6.1 thou/uL (4.0-11.0)
[2018-10-04 04:40] LABS: ALBUMIN 2.3 g/dL (3.4-5.0); CALCIUM 8.4 mg/dL (8.5-10.1); MAGNESIUM 1.8 mg/dL (1.8-2.4); POTASSIUM 3.4 mmol/L (3.5-5.1); TOTAL BILIRUBIN 0.5 mg/dL (<0.1-1.0)
--- NOTE | 2018-10-04 06:54 | NUR ---
REPORT RECIEVED FROM ER. PT ADMITTED FROM ER. PT ORIENTED TO ROOM, CALL LIGHT SHOWN, FALL AGREEMENT WENT OVER, PT STATED UNDERSTANDING. ADMISSION DOCUMENTED. MEDS GIVEN PER E-MAR. NO REPORTS OF PAIN OR NAUSEA SINCE ADMISSION. WILL CONTINUE WITH PLAN OF CARE.
[2018-10-04 07:20] VITALS: BP 141/78
--- NOTE | 2018-10-04 10:30 | NUR ---
SHEARER HELPER FAXED REQUESTED INFO TO [facility] TRANSFER TEAM. CM WILL REMAIN AVAILABLE TO ASSIST AND FOLLOW NEEDED.
[2018-10-04 10:48] VITALS: BP 141/78
[2018-10-04 15:42] VITALS: BP 141/78
--- NOTE | 2018-10-04 15:44 | NUR ---
ASSESSMENT COMPLETE. PT ALERT AND ORIENTED X4. PT DENIES PAIN AND N/V. DR QUINONES AND SURGERY DECIDED TO HAVE PT TRANSFERRED TO [facility] TO HAVE DR LEVI FOLLOW PT HE IS THE ONE WHO HAS DONE HER SURGERIES IN THE PAST. PT IS UNDERSTANDING AND ACCEPTING OF TRANSFER. PT HAS IV FLUIDS INFUSING. IV ROCEPHIN GIVEN FOR UTI. K+ REPLACED IV. PT IS UP WITH STANDBY ASSIST TO BATHROOM. PT IS ON ROOM AIR, VITAL SIGNS STABLE. SEE ASSESSMENT AND VITALS FOR OTHER DETAILS. CALL LIGHT WITHIN REACH, WILL CONTINUE PLAN OF CARE
--- NOTE | 2018-10-04 15:48 | NUR ---
PT TRANSFERRED VIA AMBULANCE AT [address] [facility] IS DR KNIGHT. PT IS GOING TO ROOM 605, REPORT GIVEN TO TERENCE. ALL BELONGINGS SENT WITH PT. SPOUSE IS TO MEET PT AT [facility].
== END 2018-10-04 15:35 | disposition short-term general hospital (02) | DRG 389 ==
LOC: M.ERS 16:11 → M.3W 20:22 → M.TBA-ER 20:22 → M.3W 21:42
PROVIDERS: Nurse Practitioner Family; ADMIT Internal Medicine
DX: K56.600 Partial intestinal obstruction, unspecified as to cause (principal); N39.0 Urinary tract infection, site not specified; K63.2 Fistula of intestine; C18.9 Malignant neoplasm of colon, unspecified; C78.7 Secondary malignant neoplasm of liver and intrahepatic bile duct; C78.00 Secondary malignant neoplasm of unspecified lung; K94.09 Other complications of colostomy; E44.1 Mild protein-calorie malnutrition; N18.3 Chronic kidney disease, stage 3 (moderate); Y83.8 Other surgical procedures as the cause of abnormal reaction of the patient, or of later complication, without mention of misadventure at the time of the procedure; Z68.23 Body mass index [BMI] 23.0-23.9, adult; Z90.710 Acquired absence of both cervix and uterus; Z90.49 Acquired absence of other specified parts of digestive tract; Z79.899 Other long term (current) drug therapy; Z87.891 Personal history of nicotine dependence; Z80.0 Family history of malignant neoplasm of digestive organs; Z86.718 Personal history of other venous thrombosis and embolism; Z92.21 Personal history of antineoplastic chemotherapy; Y92.89 Other specified places as the place of occurrence of the external cause